=== PATIENT | male | born 1965 | race Caucasian/White ===

== ENCOUNTER 2024-05-08 12:11 | Outpatient (CLI) | payer OTHER, SELFPAY ==
--- NOTE | 2024-05-08 12:15 | CRLHL7_ITS ---
For Patients: As a result of the 21st Century Cures Act, medical imaging exams and procedure reports are released immediately into your electronic medical record. You may view this report before your referring provider. If you have questions, please contact your health care provider. EXAM: MRI OF THE RIGHT KNEE, WITHOUT CONTRAST CLINICAL INDICATION: Knee pain. Injury. Concern for bucket-handle tear of the meniscus. PRIOR SURGERY: None reported. COMPARISON PLAIN FILMS: Plain film same date. COMPARISON CROSS-SECTIONAL IMAGING STUDIES: None available at time of interpretation. TECHNICAL: Axial, sagittal and coronal T1, PD, PD FS and T2 FS images. 1.5 [employer] MR scanner. Knee coil. FINDINGS: OSSEOUS STRUCTURES: No fracture, marrow edema or marrow replacement process. JOINT SPACE AND CAPSULE: Effusion: Moderate effusion extends just above the field of view in the suprapatellar recess. Thin lentiform intermediate signal filling defects suprapatellar recess may be subacute hemorrhage. Joint Bodies: None seen. CRUCIATE LIGAMENTS: Anterior Cruciate Ligament: Normal. Posterior Cruciate Ligament: Normal. EXTENSOR MECHANISM: Distal Quadriceps Tendon: Normal. Patellar Tendon: Normal. Medial Patellar Retinaculum and Medial Patellofemoral Ligament: Normal. Lateral Patellar Retinaculum: Normal. Normal patellar alignment. No patella preeti. Normal trochlear depth. Normal lateral trochlear inclination. MEDIAL COLLATERAL LIGAMENT AND POSTEROMEDIAL CORNER COMPLEX: Medial Collateral Ligament: Normal. Medial Head of the Gastrocnemius and Semimembranosus Tendons: Normal. LATERAL COLLATERAL LIGAMENT COMPLEX AND POSTEROLATERAL CORNER COMPLEX: Fibular Collateral Ligament: Normal. Distal Biceps Femoris Tendon Complex: Normal. Iliotibial Band: Normal. Popliteus Tendon: Normal. Posterolateral Corner Capsule: Normal. MEDIAL COMPARTMENT: Medial Meniscus: Bucket-handle tear of the medial meniscus from undersurface and free margin displaced into the condylar notch. Relatively well-defined displaced flap suggest this is acute to subacute. Articular Cartilage: Articular surfaces appear smooth without focal articular cartilage defect or subchondral marrow changes. Some likely posttraumatic marrow edema in the posterior and outer medial margin of the medial plateau LATERAL COMPARTMENT: Lateral Meniscus: Normal size and morphology without tear. Articular Cartilage: Sclerosis and edema at the posterior most weight-bearing condyle with intact cartilage maybe occult fissure or remote osteochondral injury. PATELLOFEMORAL COMPARTMENT: Articular Cartilage: Grade 2 to grade 3 fissuring with underlying edema in the median ridge. Possible occult grade 4 fissure. PERIARTICULAR SOFT TISSUES: Popliteal Cyst: Moderately large popliteal cyst at least 8 cm in length with edema around the margins suggesting it may be leaking. Some intermediate signal presumed hemorrhage within. Periarticular Cysts or Ganglia: None. Bursae: No prepatellar, superficial infrapatellar, deep infrapatellar, pes anserinus or semimembranosus/MCL bursitis. Musculature: No muscle atrophy or muscle edema. Subcutaneous and Soft Tissues: Prominent diffuse nonspecific subcutaneous edema. Neurovascular Structures: Normal. IMPRESSION: 1. Bucket-handle medial meniscus tear. 2. Prominent nonspecific subcutaneous edema. 3. Large probably leaking popliteal cyst. Presumed subacute hemorrhage within. 4. Moderately large joint effusion with some presumed subacute focal hemorrhage/clot suprapatellar recess. Dictated by Chris Tucker MD @ 05/08/2024 2:52:45 PM (Electronically Signed)
== END 2024-05-08 12:12 | disposition home or self-care (01) ==
LOC: MRI 12:12
PROVIDERS: PCP Family Medicine; Visit Provider Physician Assistant Surgical
DX: M25.561 Pain in right knee (principal); S83.200A Bucket-handle tear of unspecified meniscus, current injury, right knee, initial encounter; M71.21 Synovial cyst of popliteal space [Baker], right knee; M25.461 Effusion, right knee
CPT/HCPCS: 73721

== ENCOUNTER 2024-05-08 15:47 | Day surgery (SDC) | payer OTHER, SELFPAY ==
[2024-05-08] VITALS (10 sets, daily range): BP systolic 107–163; BP diastolic 71–107; PULSE 57–78; RESP 14–18; TEMP 35.7–36.2; O2SAT 93–99; BMI 25.8
--- NOTE | 2024-05-08 16:05 | ED_ITS ---
HPI - General Adult General Time Seen by Provider: 16:05 Date Seen: 05/08/24 Chief complaint: Extremity Pain/Injury, Lower Stated complaint: Knee pain Time Seen by Provider: 05/08/24 15:54 Source: patient and RN notes reviewed Mode of arrival: ambulatory Limitations: no limitations History of Present Illness HPI narrative: This 58-year-old male is coming in with known locked right knee, requiring surgery. He had an injury on 04/27 while just walking across his living room. He did see Orthopedics today, note is reviewed. Raul JENKINS did call and alerted us to this patient. Patient has had MRI of his knee earlier today. This MRI is showing a buckle handle medial meniscus tear, prominent nonspecific subcutaneous edema, large probably leaking popliteal cyst, presume subacute hemorrhage within. Moderately large joint effusion with some presume sub acute focal hemorrhage/clot suprapatellar recess. He reportedly last ate a bite of sandwich around 8:00 a.m. this morning and a sip of fluids at 11:00 a.m. today. Patient has history of hypertension and is on amlodipine and losartan. Do not see up-to-date hemoglobin or kidney functions in his chart, see last EKG in 2017. He has a chronic daily smoker. His past medical history is significant for colonoscopy in November of this past year, does have a history of polyps. He has had hernia repair in 2001, vasectomy in 1999, appendectomy age 14, shoulder surgeries in 2014 and 2016, tonsillectomy age 12. Patient has no personal history of bleeding issues or blood clotting disorders, no anesthesia problems. His father has a work related inhalational lung injury but patient otherwise notes no family history of bleeding or blood clotting issues, no cardiac issues, no pulmonary issues, no anesthesia issues. Patient denies any underlying lung issues such as shortness of breath, difficulty breathing. He states he is able to walk without any difficulty. 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 Related Data Home Medications ?Medication ?Instructions ?Recorded ?Confirmed amlodipine 5 mg tablet 5 mg PO DAILY 05/08/24 05/08/24 losartan 25 mg tablet 25 mg PO DAILY 05/08/24 05/08/24 Previous Rx's ?Medication ?Instructions ?Recorded ondansetron 4 mg disintegrating 4 mg PO Q8H PRN nausea and 05/08/24 tablet vomiting #15 tabs oxycodone 5 mg tablet 5 mg PO Q4-8H PRN pain #15 tabs 05/08/24 sennosides 8.6 mg-docusate sodium 1 tab-cap PO BID #30 tabs 05/08/24 50 mg tablet (Senna-S) Allergies Allergy/AdvReac Type Severity Reaction Status Date / Time codeine Allergy Anaphylaxis Verified 05/08/24 16:04 Penicillins Allergy Anaphylaxis Verified 05/08/24 16:04 Review of Systems Status of ROS: Reports: 6 or more systems reviewed and unremarkable except as noted in History and below [facility] Surgical History History of arthroscopy of right shoulder ?Z98.890 - Other specified postprocedural states (ICD-10) History of appendectomy ?Z90.49 - Acquired absence of other specified parts of digestive tract (ICD- 10) Social History Smoking Status: Current every day smoker What tobacco products do you use: cigarettes Do you use any of these nicotine containing products: None Second hand tobacco smoke exposure: No Exam Const: Vital Signs, click to edit/add: Vital Signs - 24 hr 05/08/24 15:59 Temperature 97.0 F L Pulse Rate [Pulse Oximeter] 75 Respiratory Rate 18 Blood Pressure [Ri ght Upper Arm] 156/107 H Pulse Oximetry 99 Oxygen Delivery Me thod Room Air This 58-year-old male is alert, interactive, no apparent distress. Pupils equal round, sclera clear, extraocular muscles intact. Face atraumatic. Neck supple, no cervical adenopathy no thyromegaly masses or nodules. Lungs are clear, good air entry, no wheezing or crackles. CV regular rate and rhythm, no murmur, normal S1-S2, no S3-S4. Abdomen is soft, nontender, nondistended, no organomegaly. He has no pretibial pitting edema. Right knee orthopedic exam is well delineated in orthopedic exam from earlier today. Documenting provider has reviewed patient's vital signs: yes Course Course ED Course: Patient will get CBC and basic metabolic panel, need to ensure stable hemoglobin and kidney functions, is on losartan which can affect his potassium. I do not see these labs any time recent. He states his primary care provider wanted him to come in to get labs. Reviewed with him that he still may need lipids in outpatient follow-up, will not be doing that today here. EKG has been done an looks excellent. Reevaluation(s) Time of Reevaluation #1: 16:57 Reevaluation #1: Patient's chemistries are stable, normal hemoglobin, EKG normal. Patient can proceed for trial of anesthesia for laparoscopic surgery of right knee with Orthopedics. Have sent a text to his surgeon to let him know that patient is clear for trial of anesthesia. Vital Signs Vital signs: Initial Vital Signs Temperature 97.0 F L 05/08/24 15:59 Temperature Source Temporal Artery Scan 05/08/24 15:59 Pulse Rate 75 05/08/24 15:59 Respiratory Rate 18 05/08/24 15:59 Blood Pressure 156/107 H 05/08/24 15:59 Blood Pressure Mean 123 H 05/08/24 15:59 Blood Pressure Position Sitting 05/08/24 15:59 Pulse Oximetry 99 05/08/24 15:59 Oxygen Delivery Method Room Air 05/08/24 15:59 Vital Signs Temperature 97.0 F L 05/08/24 15:59 Pulse Rate 75 05/08/24 15:59 Respiratory Rate 18 05/08/24 15:59 Blood Pressure 156/107 H 05/08/24 15:59 Pulse Oximetry 99 05/08/24 15:59 Oxygen Delivery Method Room Air 05/08/24 15:59 Temperature 97.0 F L 05/08/24 15:59 Pulse Rate 75 05/08/24 15:59 Respiratory Rate 18 05/08/24 15:59 Blood Pressure 156/107 H 05/08/24 15:59 Pulse Oximetry 99 05/08/24 15:59 Oxygen Delivery Method Room Air 05/08/24 15:59 Medical Decision Making Lab Data Lab results reviewed: Yes I reviewed the patient's lab results Labs: Lab Results 05/08/24 Range/Units 16:20 WBC 6.73 (4.50-11.00) K/uL RBC 5.05 (4.30-5.90) m/uL Hgb 15.8 (13.5-17.5) gm/dL Hct 46.4 (37.0-53.0) % MCV 92 (80-100) fL MCH 31 (26-34) pg MCHC 34 (32-36) gm/dL RDW Coeff of Brianna 12.4 (11.5-15.5) % Plt Count 246 (140-440) K/uL Neut % (Auto) 60.1 (42.0-72.0) % Lymph % (Auto) 25.6 (20-44) % [place] % (Auto) 10.5 (0.0-11.0) % Eos % (Auto) 3.4 (0.0-7.0) % Baso % (Auto) 0.4 (0.0-3.0) % Neut # (Auto) 4.04 (1.7-7.0) K/uL Lymph # (Auto) 1.72 (0.90-2.90) K/uL [place] # (Auto) 0.70 (0.00-0.90) K/UL Eos # (Auto) 0.23 (0.00-0.50) K/uL Baso # (Auto) 0.03 (0.00-0.30) K/uL Abs Immat Gran (auto) 0.00 (0.00-0.30) K/uL Imm/Tot Granulo (auto) 0.0 % Sodium 134 L (135-149) mmol/L Potassium 4.1 (3.6-5.1) mmol/L Chloride 100 (96-114) mmol/L Carbon Dioxide 27 (20-32) mmol/L Anion Gap 7 (7-15) mEq/L BUN 19 (7-30) mg/dL Creatinine 0.7 (0.5-1.5) mg/dL Estimated Creat Clear 129.33 Estimated GFR 108 ml/min Glucose 90 (60-115) mg/dL Calcium 8.9 (8.4-10.6) mg/dL ECG Data Attestation: I personally reviewed and interpreted this ECG as follows: (Normal sinus rhythm, 67 beats per minute. Normal EKG without evidence of ischemia or infarct.) Prior ECG tracings: not available for review (I am not able to pull up his prior EKG in 2017 from [facility]) Discharge Plan Discharge Clinical Impression: Acute bucket handle tear of medial meniscus, Locking of right knee, Hypertension, Nicotine dependence Patient Disposition: XFER to OR Condition: Stable
[2024-05-08 16:36] LABS: Basophils Absolute Auto 0.03 K/uL (0.00-0.30); Basophils Percent Auto 0.4 % (0.0-3.0); Eosinophils Absolute Auto 0.23 K/uL (0.00-0.50); Eosinophils Percent Auto 3.4 % (0.0-7.0); Hematocrit 46.4 % (37.0-53.0); Hemoglobin* 15.8 gm/dL (13.5-17.5); Lymphocytes Absolute Auto 1.72 K/uL (0.90-2.90); Lymphocytes Percent Auto 25.6 % (20-44); Mean Corpuscular HGB Conc 34 gm/dL (32-36); Mean Corpuscular Hemoglobin 31 pg (26-34); Mean Corpuscular Volume 92 fL (80-100); Monocytes Percent Auto 10.5 % (0.0-11.0); Neutrophils Absolute Auto 4.04 K/uL (1.7-7.0); Neutrophils Percent Auto 60.1 % (42.0-72.0); Platelet Count* 246 K/uL (140-440); RDW Coefficient of Variation % 12.4 % (11.5-15.5); Red Blood Count 5.05 m/uL (4.30-5.90); White Blood Count* 6.73 K/uL (4.50-11.00)
[2024-05-08 16:41] LABS: Slide Review Reflex No
[2024-05-08 16:50] LABS: Chloride* 100 mmol/L (96-114); Potassium* 4.1 mmol/L (3.6-5.1); Sodium* 134 mmol/L (135-149)
[2024-05-08 16:53] LABS: Anion Gap 7 mEq/L (7-15); Blood Urea Nitrogen* 19 mg/dL (7-30); Calcium* 8.9 mg/dL (8.4-10.6); Carbon Dioxide* 27 mmol/L (20-32); Creatinine* 0.7 mg/dL (0.5-1.5); Est. Creatinine Clearance* 129.33; Estimated Glomerular Filt Rate 108 ml/min; Glucose* 90 mg/dL (60-115)
--- NOTE | 2024-05-08 17:32 | P.ORCN_ITS ---
History of Present Illness HPI Date Seen: 05/08/24 Chief complaint: Knee pain Narrative: Baltazar is a pleasant 58-year-old male. Tobacco use in his history. He reports remote history of right knee patellofemoral instability problems. However, did well for number of years. Then, he noted a few months ago he felt a pop in the right knee while trying to change breaks on a vehicle. That did, some pain. However, on 04/27/2024 he was simply walking across his living room (perhaps turning a corner) and felt a ?tearing sensation? along with pop and severe pain about the right knee. The pain is most intense in the posterior and medial aspect of this right knee. Review of Systems Narrative: No recent fevers, chills, or aches. No numbness and tingling distally on the affected right lower extremity. No headaches, blurred vision, double vision. He does admit to tobacco smoking via cigarettes. [facility] Surgical History History of arthroscopy of right shoulder ?Z98.890 - Other specified postprocedural states (ICD-10) History of appendectomy ?Z90.49 - Acquired absence of other specified parts of digestive tract (ICD- 10) Social History Smoking Status: Current every day smoker What tobacco products do you use: cigarettes Do you use any of these nicotine containing products: None Second hand tobacco smoke exposure: No Meds Home Medications and Allergies Home Medications ?Medication ?Instructions ?Recorded ?Confirmed ?Type amlodipine 5 mg tablet 5 mg PO DAILY 05/08/24 05/08/24 History losartan 25 mg tablet 25 mg PO DAILY 05/08/24 05/08/24 History Allergies Allergy/AdvReac Type Severity Reaction Status Date / Time codeine Allergy Anaphylaxis Verified 05/08/24 16:04 Penicillins Allergy Anaphylaxis Verified 05/08/24 16:04 Ortho Exam Narrative Exam Narrative: Alert and oriented x3. No acute distress. Nonlabored breathing. Cooperative with the exam today. His is in the room and augments the history. Right knee exam shows ROM 20-80 degrees today. However, near this 20? of extension he is in significant discomfort. Tender palpation medial/posterior medial joint line. Emma unable to be assessed due to guarding/difficulty flexing the knee. Stable to varus and valgus stress at 20 and 30?. Palpable DP and PT pulse. Neurologic intact all 5 dermatomes/myotomes right lower extremity. Const Vital Signs, click to edit/add: Vital Signs - 24 hr 05/08/24 15:59 Temperature 97.0 F L Pulse Rate [Pulse Oximeter] 75 Respiratory Rate 18 Blood Pressure [Right Upper Arm] 156/107 H Pulse Oximetry 99 Oxygen Delivery Method Room Air Results Labs Labs: Laboratory Results - last 48 hr 05/08/24 16:20 WBC 6.73 RBC 5.05 Hgb 15.8 Hct 46.4 MCV 92 MCH 31 MCHC 34 RDW Coeff of Brianna 12.4 Plt Count 246 Neut % (Auto) 60.1 Lymph % (Auto) 25.6 [place] % (Auto) 10.5 Eos % (Auto) 3.4 Baso % (Auto) 0.4 Neut # (Auto) 4.04 Lymph # (Auto) 1.72 [place] # (Auto) 0.70 Eos # (Auto) 0.23 Baso # (Auto) 0.03 Abs Immat Gran (auto) 0.00 Imm/Tot Granulo (auto) 0.0 Sodium 134 L Potassium 4.1 Chloride 100 Carbon Dioxide 27 Anion Gap 7 BUN 19 Creatinine 0.7 Estimated Creat Clear 129.33 Estimated GFR 108 Glucose 90 Calcium 8.9 Diagnostic results Additional Comments: Three views the right knee were ordered and reviewed by different provider. I was able to review these radiographs earlier today. This demonstrates in no acute fractures or avulsions. No signs of AVN. No osteophytosis. Moderate effusion. MRI of the right knee from [facility] dated 05/08/2024 was ordered by different provider and reviewed by me and corroborated with the radiology report. This shows the following: Medial meniscus tear-bucket handle that is currently flipped into the intercondylar notch. Relatively well-defined displaced fragment suggests acute/subacute timing per the radiologist. No cruciate or collateral ligament pathology. No appreciable chondral defects or loose bodies. Large popliteal cyst with apparent subacute hemorrhage within. Nonspecific yet prominent subcutaneous edema. Moderate effusion in the suprapatellar recess. Assessment and Plan Assessment and plan (1) Acute bucket handle tear of medial meniscus: Status: Acute (2) Locking of right knee: Problem comment: Of injury 04/27/2024 Status: Acute (3) Nicotine dependence: Status: Acute Plan I was able to see the patient in the emergency room [facility]. I was able to confirm the history and examined the patient's right knee. Additionally, is able to correlate this with his both radiographic and magnetic resonance imaging findings. I have coordinated care with emergency room physician who was able to complete a history and physical for the patient. I have talked with the patient and his at length. I helped him understand that his right knee displaced bucket-handle medial meniscus tear is currently limiting/locking his right knee. This is an urgent situation worthy of a surgical remedy. I have discussed in great detail the risks, benefits, and alternatives. I believe all questions were answered. At this time, I would anticipate being able to do surgery this evening. The last time he ate food was at approximately a.m. this morning. Clear liquid at approximately 11:00 a.m.. I outlined the postoperative expectations. I do think he will be able go home today. The determination of whether he will be weight-bearing or partial weight-bearing will be based on his meniscus repair ability verses the need for partial meniscectomy. I also coordinated care with the anesthesia team. A short-acting spinal anesthetic will be reasonable. I would anticipate he will be able to go home this evening. We will supply him with a few narcotic tablets. We will plan to see him back in clinic in approximately 6-10 days. He may benefit from physical therapy in the near future.
[2024-05-08] MEDS: LACTATED RINGERS 500 ML 500 ML 125 ML IV (17:39)
[2024-05-08] MEDS: CEFAZOLIN 2 GM in 0.9 % SODIUM CHLORIDE Mini-bag 100 ML IVPB (17:50)
--- NOTE | 2024-05-08 18:34 | PM.ORPRC ---
Procedure Note Date of procedure: 05/08/24 Procedure: PREOPERATIVE DIAGNOSIS: 1. Right knee medial meniscus tear - bucket-handle tear, displaced POSTOPERATIVE DIAGNOSIS: 1. Right knee medial meniscus tear - bucket-handle tear, displaced, complex PROCEDURE: 1. Right knee arthroscopic partial medial meniscectomy SURGEON: Gustavo Alves M.D. COBBLER APPRENTICE: Tiffanie Clifford PA-C. Of note, an contact center assistant was critical for this case to aid in patient positioning, knee manipulation, instrument exchange, and closure. ANESTHESIA: Spinal EBL: 2ml TOURNIQUET: 30 min at 300 torr COMPLICATIONS: None evident INDICATIONS: The patient is a pleasant 58-year-old male who sustained a right knee injury on 04/27/2024. He reports that he was walking across his living room and may have twisted returned, but felt the severe pain accompanied by a pop/tearing sensation. He noted that his knee was unable to fully extended nor flex as deep. He was evaluated in clinic today. Concern was for a displaced bucket-handle meniscus tear. An urgent MRI was ordered and obtained and indeed confirmed the suspicion. Additionally, attempted nonoperative management has been tried, and failed. Thus, surgery was indicated. FINDINGS: Displaced medial meniscus bucket-handle tear extending from the posterior root around to the anterior horn. The tear was complex in its pattern. It did involve up to 80% of the depth of the meniscus. The lateral meniscus was otherwise intact. ACL and PCL intact. No appreciable loose bodies. 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 Grade 2-3 chondromalacia patella median ridge. Grade 1 chondromalacia trochlear groove. DESCRIPTION OF PROCEDURE: After a thorough discussion of risks, benefits, and alternatives, the patient was brought to the operating room and placed upon the operating table. Induction of anesthesia was undertaken as previously noted. 2g iv Ancef was administered within 1 hr of incision preoperatively. Appropriate time-out was performed identifying proper patient, site, and procedure. The right lower extremity was prepped and draped in the appropriate sterile fashion using ChloraPrep. The limb was exsanguinated and tourniquet inflated. Anterolateral and anteromedial portals were established with an 11 blade, and a diagnostic arthroscopy was performed. This identified the findings as noted above. Following the diagnostic arthroscopy, a partial medial menisectomy was performed with the combination of basket forceps, apollo cautery, and a motorized shaver. Following this, the meniscus was re-probed and found to be stable. Approximately 66-75 % of the overall meniscus required resection. At this stage, the shaver was reinserted into the suprapatellar pouch and all remaining meniscal debris was evacuated. Instruments were removed, excess fluid was drained, and closure performed with 4-0 Monocryl with Steri-Strips. Dressings were applied, the tourniquet deflated, and the patient was awoken from anesthesia and transferred to the PACU in stable condition. PLAN: 1. Weightbear as tolerated operative extremity. Crutch / walker ambulation assistance PRN. 2. Ice, acetominophen and/or ibuprofen, and Oxycodone for pain as needed. 3. Knee range of motion and quad sets/straight leg raise regularly 4. Follow up with PA visit in 1-2 weeks for a wound check and possibly to initiate physical therapy.
[2024-05-08] MEDS: ROPIVACAINE 0.5% 30 ML 150 MG INJECTION (18:36)
--- OUTSIDE RECORDS SUMMARY | 2024-05-08 18:44 | XMS_ITS | Clinical Summary ---
Author Organization [facility] Address [place], [place] [address] Care Team Providers Care Hot Mill Operator Name Role Phone Sean Jones MD Primary Care Provider Allergies Active Allergy Reactions Criticality Noted Date Comments Codeine *Unknown 03/24/2011 unknown Penicillins Shortness Of Breath,Edema 1 swelling or airway Medications INHALANT IMMUNOTHERAPYIn dications:Aller gic rhinitis due to other allergic trigger, unspecified seasonality Vial A pollen mix, [place] Grass Vial B Asco B, Mucor, Mite(2), Cat, Dog, Cockroach To be administered insights manager orders 0 05/31/19 21 Active sildenafil citrate (VIAGRA) 100 mg tabletIndicatio ns:Erectile dysfunction of organic origin TAKE ONE TABLET 30MIN TO 4 HOURS PRIOR TO SEXUAL ACTIVITY NEEDED FOR ERECTILE DYSFUNCTION. MAX ONE TABLET PER 24HRS 30 Tablet 07/17/19 24 Active hydrocortisone (ANUSOL-HC) 2.5 % rectal creamIndication s:Hemorrhoids, unspecified hemorrhoid type Apply topically to affected area(s) two times daily. 30 g 1 4 9:39 AM CDT 10/28/19 24 Active lidocaine, anorectal, 5% topical 5 % creamIndication s:Hemorrhoids, unspecified hemorrhoid type Apply to affected areas, twice daily as needed for discomfort in the rectal area. 30 g 4 9:39 AM CDT 10/28/19 24 Active losartan (COZAAR) 25 mg tabletIndicatio ns:Essential hypertension with goal blood pressure less than 140/90 TAKE ONE TABLET BY MOUTH EVERY DAY 90 Tablet 04/17/20 24 Active amLODIPine (NORVASC) 5 mg tabletIndicatio ns:Essential hypertension with goal blood pressure less than 140/90 TAKE ONE TABLET BY MOUTH EVERY DAY. 90 Tablet 04/17/20 24 Active losartan (COZAAR) 25 mg tabletIndicatio ns:Essential hypertension with goal blood pressure less than 140/90 TAKE ONE TABLET BY MOUTH EVERY DAY 30 Tablet 03/13/20 24 2023 Discontinued amLODIPine (NORVASC) 5 mg tabletIndicatio ns:Essential hypertension with goal blood pressure less than 140/90 TAKE ONE TABLET BY MOUTH EVERY DAY. 30 Tablet 03/13/20 24 2023 Discontinued Active Problems Problem Noted Date Diagnosed Date Encounter for colonoscopy du e to history of adenomatous colonic polyps 11/05/2023 Essential hypertension with goal blood pressure less than 140/90 05/18/2018 Tobacco use disorder 06/01/2014 No active medical problems 05/18/2011 Encounter for screening colonoscopy Rectal bleeding Encounters Date Type Department Care Team Description 04/14/[address] [phone] Sean Jones MD Refill Request (Losartan, Amlodipine) 03/26/2024 11:30 AM TECHNOLOGY APPLICATIONS ENGINEER Phone Office Visit [address] [phone] Sean Jones MD Phone Visit (medications) 03/26/2024 Travel 03/10/[address] [phone] Sean Jones MD Refill Request (Losartan, Amlodipine) 02/11/[address] [phone] Sean Jones MD Refill Request (Losartan, Amlodipine) from Last 3 Months Immunizations Name Administration Dates Next Due Influenza A (H1N1), Inactivated (Age 6-35 Mos) 0 05/11/2009 Influenza, IIV3 (Age >=3 years) 02/01/2012 Td, Preservative Free (age >= 7 Years) 9 Tdap 10/03/2011 Zoster (Shingrix-RZV, recombinant) 06/07/2023, Family History Medical History Relation Name Comments Cancer Maternal Grandfather Cancer Maternal Grandmother Alcohol/Drug Mother etoh Cancer-breast Mother throat Stroke Mother Diabetes Paternal Grandfather Relation Name Status Comments Brother 1 Alive Brother 2 Alive Brother 3 Alive Brother 4 Alive Father Alive Maternal Grandfather Maternal Grandmother Mother Alive Paternal Grandfather Paternal Grandmother Sister Alive Social History Tobacco Use Types Packs/Day Years Used Date Smoking Tobacco: Every Day Cigarettes 0.5 42 Started: 05/06/1982 Smokeless Tobacco: Never Tobacco Cessation:Ready to Q uit: No; Counseling Given: Yes Alcohol Use Standard Drinks/Week Comments Yes 12 (1 standard drink = 0.6 oz pu re alcohol) social PHQ-2 Answer Date Recorded PHQ-2 TOTAL SCORE 0 07/05/2023 Financial Resource Strain Answer Date R ecorded Difficulty of Paying Living Expenses Not on file 05/01/2021 Difficulty of Paying Living Expenses Not on file 05/01/2021 Sex and Gender Information Value Date Recorded Sex Assigned at Not on file Legal Sex Male 5:52 AM TECHNOLOGY APPLICATIONS ENGINEER Gender Identity Not on file Sexual Orientation Not on file 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 file Not on file Not on fi le Obstetrics History Last Filed Vital Signs Vital Sign Reading Time Taken Comments Blood Pressure 159/94 10/28/2023 1:00 PM CDT Pulse 50 10/28/2023 1:00 PM CDT Temperature 36.8 C (98.3 F) 10/28/2023 10:50 AM CDT Respiratory Rate 16 10/28/2023 1:00 PM CDT Oxygen Saturation 97% 10/28/2023 1:00 PM CDT Inhaled Oxygen Concentration - - Weight 83.2 kg (183 lb 6.8 oz) 10/28/2023 10:50 AM CDT Height 182.9 cm (6') 10/28/2023 10:50 AM CDT Body Mass Index 24.88 10/28/2023 10:50 AM CDT Plan of Treatment Health Maintenance Due Date Last Done Comments HIV for age 15-65 12/27/1982 Hepatitis C screening for ag e 18-79 12/27/1985 Pneumococcal series for age 50+ (1 of 2 - PCV) 12/27/[address] (for lung CA) ag e 50-80 12/27/2017 BMI (ht and wt on same day) for age 18+ 06/08/2023 06/08/2022, 04/18/2021, 04/07/2020, Additional history exists COVID-19 vaccine series ( - season) 2024 10/07/2020, 09/16/2020 Influenza for age 50-64 01/05/2024 02/01/2012 Depression screening for age 12+ 07/04/2024 07/05/2023, 06/08/2022, 06/07/2022, Additional history exists Colonoscopy through age 75 10/27/2024 10/28/2023, Lipids for age 45-75 04/18/2026 04/18/2021, 03/20/2017, 04/23/2012 Tetanus booster 01/01/2029 01/01/2019, 10/03/2011 Tdap Completed 10/03/2011 Zoster (shingles) series for age 50+ Completed 06/07/2023, 04/19/2022 Procedures Procedure Name Priority Date/Time Associated Diagnosis Comments COLONOSCOPY 10/28/2023 11:24 AM CDT LIPID PANEL W REFLEX MEASURED LDL STAT 04/18/2021 10:58 AM TECHNOLOGY APPLICATIONS ENGINEER Screening for lipid disorders from Last 3 Months or Most Recently Relevant to Health Maintenance Results * COLONOSCOPY (10/28/2023 11:24 AM CDT) 10/28/2023 11:2 4 AM CDT Narrative Transcriptions Rajani Tang DO - 10/28/2023 1:59 PM CDT Patient Name: Ramírez Llanes Procedure Date: 10/28/2023 Gender: Male Date of : 1965 Admit Type: Ambulatory Procedure: Colonoscopy Proceduralist: Rajani Tang MD Referring MD: Sean Jones Indications/Pre-Op Diagnosis: High risk colon cancer surveillance:Personal history of colonic polyps, history of hemorrhoids Medications: Propofol per Anesthesia, MonitoredAnesthesia Care Procedure Description: The patient had risks, benefits and alternatives explained to andgave informed consent. The patient had a stable cardiopulmonary status and judged an adequate candidate for conscious sedation. The endoscope [id number] was passed through the anus andadvanced to the cecum, identified by appendiceal orifice and ileocecal valve.The colonoscopy was performed without difficulty. The patient toleratedthe procedure well. The quality of the bowel preparation was good. The terminal ileum, ileocecal valve, appendiceal orifice, and rectum were photographed. Complications: No immediate complications. Estimated Blood Loss & Specimen: Estimated blood loss was minimal. Specimen collected - Yes and sent to Laboratory Findings: Hemorrhoids were found on perianal exam. Non-bleeding external hemorrhoids were found during perianal exam.The hemorrhoids were moderate, medium-sized and large. A 13 mm polyp was found in the cecum. The polyp was multi-lobulated.The polyp was removed with a hot snare. Resection and retrieval were complete. Verification of patient identification for the specimen was done. To prevent bleeding post-intervention, one hemostatic clip was successfully placed (MR conditional). Clip principal systems architect: Fidus Writer. There was no bleeding during, or at the end, of the procedure. A 5 mm polyp was found in the cecum. The polyp was sessile. The polyp was removed with a hot snare. Resection and retrieval were complete. Verification of patient identification for the specimen was done. Estimated blood loss was minimal. An 8 mm polyp was found in the transverse colon. The polyp wassessile. The polyp was removed with a piecemeal technique using a hot biopsy forceps. Resection and retrieval were complete. Verification ofpatient identification for the specimen was done. Estimated blood loss was minimal. Majority of polyp was fulgurated. A 10 mm polyp was found in the sigmoid colon. The polyp was pedunculated. The polyp was removed with a hot snare. Resection and retrieval were complete. Verification of patient identification forthe specimen was done. Estimated blood loss was minimal. A 15 mm polyp was found in the sigmoid colon. The polyp was pedunculated. The polyp was removed with a hot snare. Resection and retrieval were complete. Verification of patient identification forthe specimen was done. Estimated blood loss was minimal. The exam was otherwise without abnormality on direct and retroflexion views. Impressions/Post-Op Diagnosis: - Hemorrhoids found on perianal exam. - Non-bleeding external hemorrhoids. - One 13 mm polyp in the cecum, removed with a hot snare. Resectedand retrieved. Clip (MR conditional) was placed. Clip principal systems architect: [employer]. - One 5 mm polyp in the cecum, removed with a hot snare. Resected and retrieved. - One 8 mm polyp in the transverse colon, removed piecemeal using ahot biopsy forceps. Resected and retrieved. - One 10 mm polyp in the sigmoid colon, removed with a hot snare. Resected and retrieved. - One 15 mm polyp in the sigmoid colon, removed with a hot snare. Resected and retrieved. - The examination was otherwise normal on direct and retroflexionviews. Recommendation: - Patient has a contact number available for emergencies. The signsand symptoms of potential delayed complications were discussed with the patient. Return to normal activities tomorrow. Written discharge instructions were provided to the patient. - Discharge patient to home (ambulatory). - Resume previous diet. - Continue present medications. - Await pathology results. - Repeat colonoscopy in 3 - 5 years for surveillance based onpathology results. - Presecriptions written for medications (hydrocortisone andlidocaine) for hemorrhoids. Rajani Tang MD 10/28/2023 1:59:37 PM This report has been signed electronically. Note Initiated On: 10/28/2023 11:24 AM us Rajani Tang DO PROCEDURE ORD Final Res ult * (ABNORMAL) LIPID PANEL W REFLEX MEASURED LDL (04/18/2021 10:58 AM TECHNOLOGY APPLICATIONS ENGINEER) CHOLESTEROL,TOTAL 216(H) 100 - 199 mg/dL 04/18/2021 11:21 AM TECHNOLOGY APPLICATIONS ENGINEER [facility] TRIGLYCERIDES 135 <150 mg/dL 04/18/2021 11:21 AM TECHNOLOGY APPLICATIONS ENGINEER [facility] HDL CHOLESTEROL 61 >40 mg/dL 11:21 AM TECHNOLOGY APPLICATIONS ENGINEER [facility] NON-HDL CHOLESTEROL 155(H) <145 mg/dl 04/18/2021 11:21 AM TECHNOLOGY APPLICATIONS ENGINEER [facility] CHOL/HDL RATIO 3.54 <4.50 04/18/2021 11:21 AM TECHNOLOGY APPLICATIONS ENGINEER [facility] LDL CHOLESTEROL 128 <=130 mg/dL 04/18/2021 11:21 AM TECHNOLOGY APPLICATIONS ENGINEER [facility] VLDL CHOLESTEROL 27 <=30 mg/dL 04/18/20 11:21 AM TECHNOLOGY APPLICATIONS ENGINEER [facility] PROVIDER ORDERED STATUS RANDOM 04/18/2021 11:21 AM TECHNOLOGY APPLICATIONS ENGINEER [facility] Blood BLOOD SPECIMEN / Unknown Venipuncture / Unknown 04/18/2021 10:58 AM TECHNOLOGY APPLICATIONS ENGINEER 04/18/2021 11:00 AM TECHNOLOGY APPLICATIONS ENGINEER us Sean Jones MD CHEMISTRY Final Result [address] [id number] from Last 3 Months or Most Recently Relevant to Health Maintenance Insurance [employer] [place] [id number] [employer] * Guarantor: ROME [place] Account Type Relation to Patient Date of Phone Billing Address [facility] [address] [place] [id number] Advance Directives * Full Code (Latest Code Status on File) Date Activated Date Inactivated Comments 10/28/2023 10:43 AM 10/28/2023 3:41 PM Question Answer Comments Code Status Discussion: Discussed Care Teams Hot Mill Operator Relationship Specialty Start Date End Date Sean Jones MD [address] [facility] [place] [id number] PCP - General Family Practice 05/09/17
--- OUTSIDE RECORDS SUMMARY | 2024-05-08 18:44 | XMS_ITS | Clinical Summary ---
Author Organization [facility] Address [address] [place] [address] Care Team Providers Care Log Hauler Name Role Phone None Reported, Pcp Primary Care Provider Unavail able Source Comments Patient records contain information from all sites at [facility]. For routine questions regarding patient records, call [phone] during business hours, M-F 8:00 AM - 5:00 PM Central Time. Record requests for emergency care only can be directed to [phone] at any time.[facility] Allergies Active Allergy Reactions Criticality Noted Date Comments Banana Anaphylaxis High 01/25/2023 Codeine Other (see comments) ,Hives (Reselect Reaction),Anaphylaxis High 03/20/1994 unknown Penicillins Anaphylaxis,Edema (Reselect Reaction),Hives (Reselect Reaction),Shortness of breath (Reselect Reaction) High 03/20/1994 swelling or airway Medications amLODIPine (NORVASC) 5 mg tablet Take 5 mg by mouth daily. Active sildenafiL (VIAGRA) 100 mg tablet Take 100 mg by mouth at bedtime as needed. 06/08/2022 Active Active Problems Problem Noted Date Diagnosed Date Major Depressive Disorder Single Episode Unspeci fied 10/07/2006 Overview (09/25/2016): Depression Major NOS Immunizations Name Administration Dates Next Due H1N1 Inj Preservative Free 05/11/2009 Influenza TIV (IM) 02/01/2012 Influenza, Seasonal, Injectable 02/01/2012 RZV (SHINGRIX) 04/19/2022 Td Preservative Free (TENIVAC, DECAVAC) 01/02/20 19 Tdap 10/03/2011 Social History Tobacco Use Types Packs/Day Years Used Date Smoking Tobacco: Every Day Cigarettes Smokeless Tobacco: Former Chew Tobacco Cessation:Ready to Q uit: No; Counseling Given: Yes Alcohol Use Standard Drinks/Week Comments Yes 0 (1 standard drink = 0.6 oz pur e alcohol) Overall Financial Resource Strain (CARDIA) Answe r Date Recorded How hard is it for you to pa y for the very basics like food, housing, medical care, and heating? Not hard at all 01/25/2023 PHQ-2 Answer Date Recorded PHQ-2 Score 0 01/25/2023 Exercise Vital Sign Answer Date Recorde d On average, how many days pe r week do you engage in moderate to strenuous exercise (like a brisk walk)? 1 day 01/25/2023 On average, how many minutes do you engage in exercise at this level? 20 min 01/25/2023 Hunger Vital Sign Answer Date Recorded Within the past 12 months, y ou worried that your food would run out before you got the money to buy more. Never true 01/26/20 Within the past 12 months, t he food you bought just didn't last and you didn't have money to get more. Never true 01/25/2023 PRAPARE - Transportation Answer Date Re corded In the past 12 months, has l ack of transportation kept you from medical appointments or from getting medications? No 01/05 In the past 12 months, has l ack of transportation kept you from meetings, work, or from getting things needed for daily living? No 01/25/2023 Depression Answer Date Recor ded PHQ-9 Total Score (max 27) 0 01/25 Nutrition Answer Date Recorded On average, how many serving s of fruits and vegetables do you eat per day (serving size is equal to 1 cup or approximately the size of a tennis ball)? 0-2 01/25/2023 Dental Answer Date Recorded Dental: Regular Dentist No 01/26/20 Employment Answer Date Recorded Employment status Employed and actively working without restrictions 01/25/2023 Housing Stability Answer Date Recorded What is your living situation today? 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 Gender Identity Male 01/25/2023 1:54 PM CDT Sexual Orientation Straight 01/25/2023 1: 54 PM CDT Last Filed Vital Signs Vital Sign Reading Time Taken Comments Blood Pressure 134/77 01/25/2023 2:08 PM CDT average of 3 Pulse 77 01/25/2023 2:08 PM CDT Temperature 36.3 C (97.3 F) 01/25/2023 2:08 PM CDT Respiratory Rate 16 01/25/2023 2:08 PM CDT Oxygen Saturation - - Inhaled Oxygen Concentration - - Weight 84.1 kg (185 lb 6.5 oz) 01/25/2023 2:08 PM CDT Height 181 cm (5' 11.26) 01/25/2023 2: 08 PM CDT with shoes on Body Mass Index 25.67 01/25/2023 2:08 PM CDT Plan of Treatment Health Maintenance Due Date Last Done Comments CT Colonography 1965 Cologuard 1965 Colonoscopy 1965 Colorectal Cancer Screening 1965 FIT 1965 Fasting Glucose for Diabetes Screening 1965 HIV Screening 1965 Hepatitis C Screening 1965 Hepatitis B Vaccines (1 of 3 - 19+ 3-dose series) 12/27/1986 Pneumococcal vaccine (50+ years) (1 of 2 - PCV) 12/27/1986 Depression Monitoring (PHQ-9 for quality tracking) 05/06/2023 Depression Monitoring (PHQ-9) 05/27/2023 01/25/2023 COVID-19 Vaccine (3 - 2023-2 5 season) 2024 10/07/2020, 09/16/2020 Tobacco Cessation counseling 01/26/2024 01/25/2023 Influenza Vaccine (#1) 2024 2, 02/01/2012 Lipid (Cholesterol) Screening 04/18/2026 04/18/2021 DTaP,Tdap,and Td Vaccines (3 - Td or Tdap) 01/01/2029 01/01/2019, 10/03/2011 Zoster Vaccines Completed 06/07/2023, 04/19/2022 IPV Vaccines Aged Out No longer eligi ble based on patient's age to complete this topic Insurance [address] [place] [id number] [employer] [place] [id number] Care Teams Log Hauler Relationship Specialty Start Date End Date None Reported, Pcp PCP - General 02/11/23
--- OUTSIDE RECORDS SUMMARY | 2024-05-08 18:44 | XMS_ITS ---
Author Organization [facility] Address [address] [place] [address] Care Team Providers Care Destination Specialist Name Role Phone Unavailable Unavailable Unavailable Surgery Details Not on file Complications Check Surgery Details section. Procedure Estimated Blood Loss Check Surgery Details section. Procedure Findings Check Surgery Details section. Procedure Specimens Taken Check Surgery Details section.
--- OUTSIDE RECORDS SUMMARY | 2024-05-08 18:44 | XMS_ITS | Referral Summary ---
Author Organization [facility] Address [address] [place] [address] Care Team Providers Care Non Profit Director Name Role Phone None Reported, Pcp Primary Care Provider Unavail able Source Comments Patient records contain information from all sites at [facility]. For routine questions regarding patient records, call [phone] during business hours, M-F 8:00 AM - 5:00 PM Central Time. Record requests for emergency care only can be directed to [phone] at any time.[facility] Allergies Active Allergy Reactions Criticality Noted [...] your living situation today? 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
--- NOTE | 2024-05-08 18:50 | W.ANESCHARGE ---
Anesthesia Charges Start Date/Time Anesthesia Start Date: 05/08/24 Anesthesia Start Time: 17:39 Stop Date/Time Anesthesia Stop Date: 05/08/24 Anesthesia Stop Time: 18:48
--- NOTE | 2024-05-08 20:31 | PC.NURSE ---
Pt was up tolerating diet. Voided, Afebrile. VSS. Reporting zero pain. Pt discharged with at 2004. Instructions given
== END 2024-05-08 20:07 | disposition home or self-care (01) ==
LOC: ED 16:58 → OR 17:41 → MEDSURG 19:53
PROVIDERS: Emergency Provider Family Medicine; PCP Family Medicine; Visit Provider Orthopaedic Surgery Sports Medicine
PROC: (CPT 29882; principal; 2024-05-08 17:30)
DX: S83.211A Bucket-handle tear of medial meniscus, current injury, right knee, initial encounter (principal); M23.8X1 Other internal derangements of right knee; I10 Essential (primary) hypertension; F17.210 Nicotine dependence, cigarettes, uncomplicated; M71.21 Synovial cyst of popliteal space [Baker], right knee
CPT/HCPCS: 29881; 01400; 36415; 80048; 85025; 93005; 99284; 99285; J0690; J1100; J2250; J2371; J2405; J2704; J2795; J3010; J7120; L1833

== ENCOUNTER 2024-05-15 12:26 | Outpatient (CLI) | payer OTHER, SELFPAY ==
--- NOTE | 2024-05-15 13:00 | CRLHL7_ITS ---
For Patients: As a result of the Century Cures Act, medical imaging exams and procedure reports are released immediately into your electronic medical record. You may view this report before your referring provider. If you have questions, please contact your health care provider. INDICATION: Leg pain and swelling TECHNIQUE: Ultrasound venous duplex lower right extremity. Compression venous exam was performed using castro-scale, color Doppler, and spectral Doppler imaging. COMPARISON: None. FINDINGS: Sonographic imaging demonstrates the right common femoral, deep femoral, superficial femoral, popliteal, posterior tibial and greater saphenous and the contralateral left common femoral veins to be fully compressible with normal color Doppler blood flow. Complex fluid collection in the popliteal fossa to proximal calf measuring 8.6 centimeters consistent with a complex popliteal cyst. A hematoma could have a similar appearance. IMPRESSION: No deep venous thrombosis. Complex fluid collection in the popliteal fossa to proximal calf measuring 8.6 centimeters consistent with a complex popliteal cyst. A hematoma could have a similar appearance. Dictated by Harrison Liu MD @ 05/15/2024 1:43:32 PM (Electronically Signed)
== END 2024-05-15 12:27 | disposition home or self-care (01) ==
LOC: US 12:26
PROVIDERS: PCP Family Medicine; Visit Provider Nurse Practitioner Family
DX: M79.604 Pain in right leg (principal); M79.89 Other specified soft tissue disorders
CPT/HCPCS: 93971